=== PATIENT | male | born 1955 | race Caucasian/White ===

== ENCOUNTER 2023-06-26 00:08 | Inpatient (IN) | payer OTHER ==
[~2023-06-26] VITALS: Ht 185.4 cm; Wt 77.4 kg
[2023-06-26] VITALS (12 sets, daily range): BP systolic 104–122; BP diastolic 54–68; TEMP 98.5–100.1; O2SAT 97–100
[2023-06-26] MEDS ORDERED: AMIODARONE HCL IV 150 MG in IV DEXTROSE 5% 100 ML IV ONE (00:45)
[2023-06-26] MEDS ORDERED: IV NORMAL SALINE 1000 ML BAG IV ONE ×2 (00:45→02:15)
[2023-06-26] MEDS ORDERED: AMIODARONE HCL IV 450 MG in IV DEXTROSE 5% 250 ML IV PRN (00:45)
[2023-06-26 00:55] LABS: ABG BASE EXCESS 6.6 mmol/L (-2.0-2.0); ABG HCO3 30.3 mmol/L (22.0-26.0); ABG PCO2 39.5 mmHg (35.0-48.0); ABG PH 7.502 (7.340-7.440); ABG PO2 68.8 mmHg (75.0-100.0); ABG SITE LEFT RADIAL; ABG TOTAL HEMOGLOBIN 9.1 G/dL (14.0-18.0); AaDO2 95.2 mmHg; COHb 0.6 % (0.0-3.9); MetHb 0.2 % (0.0-1.5); O2Hb 93.4 % (94.0-97.0)
[2023-06-26 01:00] LABS: BASOPHILS % (AUTO) 0.3 % (0.0-2.0); EOSINOPHILS % (AUTO) 0.4 % (0.0-7.0); HEMATOCRIT 25.6 % (36.7-47.1); HEMOGLOBIN 8.4 g/dL (12.5-16.3); LYMPHOCYTES # (AUTO) 0.3 K/uL (0.8-4.8); LYMPHOCYTES % (AUTO) 3.8 % (20.5-51.5); MEAN CORPUSCULAR HEMOGLOBIN 32.2 uug (23.8-33.4); MEAN CORPUSCULAR HGB CONC 33 g/dL (32.5-36.3); MEAN CORPUSCULAR VOLUME 98.5 fL (73.0-96.2); MONOCYTES # (AUTO) 0.1 K/uL (0.1-1.30); MONOCYTES % (AUTO) 1.3 % (0.0-11.0); NEUTROPHILS # (AUTO) 8.2 K/uL (1.8-8.9); NEUTROPHILS % (AUTO) 94.2 % (38.5-71.5); PLATELET COUNT (AUTO) 147 K/uL (152-348); RED CELL DISTRIBUTION WIDTH 18.7 % (12.1-16.2); WHITE BLOOD COUNT (AUTO) 8.7 K/uL (3.6-10.2)
[2023-06-26] MEDS ORDERED: AMIODARONE HCL 150 MG/3 ML VIAL IV ONE ×2 (01:00→01:57)
[2023-06-26 01:02] LABS: DIFFERENTIAL COMMENT 1
[2023-06-26 01:15] LABS: CALCIUM 7.4 mg/dL (8.5-10.1); CARBON DIOXIDE 31 mmol/L (21-32); CHLORIDE 102 mmol/L (98-107); CREATININE 1.4 mg/dL (0.6-1.3); GLUCOSE 110 mg/dL (74-106); POTASSIUM 4.1 mmol/L (3.5-5.1); SODIUM SERUM 138 mmol/L (136-145); UREA NITROGEN, BLOOD 29 mg/dL (7-18)
[2023-06-26 01:28] LABS: ALANINE AMINOTRANSFERASE 37 U/L (16-63); ALBUMIN 1.9 g/dL (3.4-5.0); ALKALINE PHOSPHATASE 94 U/L (50-136); ASPARTATE AMINOTRANSFERASE 24 U/L (15-37); BILIRUBIN,DIRECT 0.3 mg/dL (0.0-0.2); BILIRUBIN,TOTAL 0.7 mg/dL (0.2-1.0); NT-PRO BNP 3496 pg/mL (0-125); TOTAL PROTEIN, SERUM 5.3 g/dL (6.4-8.2)
[2023-06-26] MEDS ORDERED: ATOR80TA GT (01:28)
[2023-06-26] MEDS ORDERED: LEVO150T GT (01:28)
[2023-06-26] MEDS ORDERED: AMIO200T7 GT (01:28)
[2023-06-26] MEDS ORDERED: FURO-152 GT (01:28)
[2023-06-26] MEDS ORDERED: METO-357 GT (01:28)
[2023-06-26] MEDS ORDERED: RIVA20TA GT (01:28)
[2023-06-26] MEDS ORDERED: AMLO5TAB4 GT (01:28)
[2023-06-26] MEDS ORDERED: SWABABLE VALVE TRANSFER SET EA MC ONE ×2 (03:17→08:19)
[2023-06-26] MEDS ORDERED: IOHEXOL 350 100 ML INFUS..BTL ONE ×2 (03:17→08:20)
[2023-06-26] MEDS ORDERED: IV NORMAL SALINE 250 ML IV ONE ×2 (03:17→08:19)
[2023-06-26] MEDS ORDERED: LORAZEPAM 2 MG/1 ML VIAL IV PRN (11:45)
[2023-06-26] MEDS ORDERED: ALBUTEROL SULFATE 2.5 MG/3 ML NEBU NEB PRN (11:45)
[2023-06-26] MEDS: DOXYCYCLINE HYCLATE IV 100 MG in IV DEXTROSE 5% 100 ML IV SCH ×2 (11:45→21:18)
[2023-06-26] MEDS: PANTOPRAZOLE SODIUM 40 MG VIAL IV SCH (11:45)
[2023-06-26] MEDS ORDERED: NOREPINEPHRINE BITARTRATE 8 MG in IV NORMAL SALINE 250 ML IV PRN (11:45)
[2023-06-26] MEDS ORDERED: NORMAL SALINE FLUSH 10 ML DISP.SYRIN IV PRN (11:45)
[2023-06-26] MEDS ORDERED: IPRATROPIUM BROMIDE 0.5 MG/2.5 ML NEBU NEB PRN (11:45)
[2023-06-26] MEDS: CEFEPIME HCL 1 G in IV DEXTROSE 5% 50 ML IV SCH (13:44)
[2023-06-26] MEDS ORDERED: CEFEPIME HCL 1 G in IV DEXTROSE 5% 50 ML IV SCH (14:00)
[2023-06-26] MEDS: NORMAL SALINE FLUSH 10 ML DISP.SYRIN IV SCH ×2 (14:02→22:44)
[2023-06-26] MEDS: MORPHINE SULFATE 2 MG/1 ML DISP.SYRIN IV PRN (14:09)
[2023-06-26] MEDS: FUROSEMIDE 40 MG/4 ML VIAL IV SCH (16:00)
[2023-06-26] MEDS: AMIODARONE HCL 200 MG TABLET GT SCH (16:00)
[2023-06-26] MEDS: PROTEIN SUPPLEMENT (PROSTAT) 30 ML LIQUID GT SCH (17:00)
[2023-06-26] MEDS: METOPROLOL SUCCINATE XL 50 MG TAB.SR.24H PO SCH (17:13)
[2023-06-26] MEDS: AMLODIPINE 5 MG TABLET GT SCH (17:14)
[2023-06-26 18:11] LABS: HEMOGLOBIN 7.7 g/dL (12.5-16.3)
[2023-06-26] MEDS: ATORVASTATIN 40 MG TABLET GT SCH (21:18)
[2023-06-27] VITALS (25 sets, daily range): BP systolic 104–121; BP diastolic 47–77; TEMP 97.7–100.1; O2SAT 98–100
[2023-06-27 00:12] LABS: HEMATOCRIT 22.8 % (36.7-47.1)
[2023-06-27 00:13] LABS: HEMOGLOBIN 7.4 g/dL (12.5-16.3)
[2023-06-27] MEDS: CEFEPIME HCL 1 G in IV DEXTROSE 5% 50 ML IV SCH ×2 (01:30→13:30)
[2023-06-27] MEDS: NORMAL SALINE FLUSH 10 ML DISP.SYRIN IV SCH ×3 (05:32→22:30)
[2023-06-27 05:34] LABS: BASOPHILS # (AUTO) 0.3 K/UL (0.0-0.2); EOSINOPHILS % (AUTO) 0.4 % (0.0-7.0); HEMOGLOBIN 7.5 g/dL (12.5-16.3); LYMPHOCYTES # (AUTO) 0.8 K/uL (0.8-4.8); LYMPHOCYTES % (AUTO) 8.9 % (20.5-51.5); MEAN CORPUSCULAR HGB CONC 33 g/dL (32.5-36.3); MEAN CORPUSCULAR VOLUME 97.8 fL (73.0-96.2); MONOCYTES # (AUTO) 0.6 K/uL (0.1-1.30); NEUTROPHILS # (AUTO) 6.9 K/uL (1.8-8.9); NEUTROPHILS % (AUTO) 80.7 % (38.5-71.5); PLATELET COUNT (AUTO) 142 K/uL (152-348); WHITE BLOOD COUNT (AUTO) 8.5 K/uL (3.6-10.2)
[2023-06-27 05:41] LABS: DIFFERENTIAL COMMENT 1; RED BLOOD CELL COUNT(AUTO) 2.35 MIL/uL (4.06-5.63)
[2023-06-27 05:44] LABS: CALCIUM 6.9 mg/dL (8.5-10.1); CREATININE 1.4 mg/dL (0.6-1.3); MAGNESIUM 1.9 mg/dL (1.8-2.4); PHOSPHOROUS 3.1 mg/dL (2.5-4.9); POTASSIUM 3.8 mmol/L (3.5-5.1)
[2023-06-27 06:10] LABS: *BILIRUBIN,URIN NEGATIVE (NEGATIVE); *CLARITY,URINE CLEAR (CLEAR); *COLOR,URINE YELLOW (YELLOW); *KETONES,URINE TRACE (NEGATIVE); *PROTEIN,URINE 2+ (NEGATIVE); *UROBILINOGEN,URINE >=8.0 E.U./dl (NORMAL); LEUKOCYTE ESTERASE ,URINE NEGATIVE (NEGATIVE); NITRITE, URINE NEGATIVE (NEGATIVE); PH,URINE 8.5 (5.0-8.0); UGLUCOSE NEGATIVE (NEGATIVE)
[2023-06-27 06:15] LABS: *BLOOD, URINE TRACE (NEGATIVE)
[2023-06-27 06:18] LABS: *CREATININE,URINE 186.4 mg/dL (30-125); *URINE TOTAL PROTEIN RANDOM 91.3 mg/dL (<150/24HR)
[2023-06-27 06:19] LABS: ABG BASE EXCESS 3.9 mmol/L (-2.0-2.0); ABG HCO3 26.4 mmol/L (22.0-26.0); ABG PCO2 31.7 mmHg (35.0-48.0); ABG PH 7.539 (7.340-7.440); ABG PO2 157.8 mmHg (75.0-100.0); ABG TOTAL HEMOGLOBIN 8.4 G/dL (14.0-18.0); AaDO2 99.2 mmHg; COHb 0.6 % (0.0-3.9); MetHb 0.5 % (0.0-1.5); VT, ABG 500 mL
[2023-06-27] MEDS: LEVOTHYROXINE SODIUM 150 MCG TABLET GT SCH (06:28)
[2023-06-27 06:31] LABS: BACTERIA,URINE FEW /HPF (NONE SEEN); SQUAMOUS EPITHELIAL CELL,UR FEW /HPF (NONE SEEN); WBC,URINE NONE SEEN /HPF (0-3)
[2023-06-27] MEDS: AMIODARONE HCL 200 MG TABLET GT SCH (08:37)
[2023-06-27] MEDS: AMLODIPINE 5 MG TABLET GT SCH (08:39)
[2023-06-27] MEDS: METOPROLOL SUCCINATE XL 50 MG TAB.SR.24H PO SCH (08:41)
[2023-06-27] MEDS: FUROSEMIDE 40 MG/4 ML VIAL IV SCH (08:43)
[2023-06-27] MEDS: PANTOPRAZOLE SODIUM 40 MG VIAL IV SCH (08:43)
[2023-06-27] MEDS: DOXYCYCLINE HYCLATE IV 100 MG in IV DEXTROSE 5% 100 ML IV SCH ×2 (08:49→20:49)
[2023-06-27] MEDS: PROTEIN SUPPLEMENT (PROSTAT) 30 ML LIQUID GT SCH ×2 (09:29→18:26)
[2023-06-27] MEDS: POLYVINYL ALCOHOL OPHT DROPS 15 ML BOTTLE EACHEYE PRN (16:48)
[2023-06-27] MEDS ORDERED: METOPROLOL SUCCINATE XL 50 MG TAB.SR.24H PO SCH (17:00)
[2023-06-27] MEDS: METOPROLOL TARTRATE 50 MG TABLET PO SCH (18:25)
[2023-06-27] MEDS: ATORVASTATIN 40 MG TABLET GT SCH (20:49)
[2023-06-27] MEDS: TEMAZEPAM 7.5 MG CAPSULE PO PRN (22:36)
[2023-06-28] VITALS (24 sets, daily range): BP systolic 106–134; BP diastolic 34–70; TEMP 98.6–99.7; O2SAT 100
[2023-06-28] MEDS: CEFEPIME HCL 1 G in IV DEXTROSE 5% 50 ML IV SCH ×2 (01:45→14:26)
[2023-06-28 04:42] LABS: BASOPHILS % (AUTO) 0.4 % (0.0-2.0); EOSINOPHILS # (AUTO) 0.1 K/uL (0.0-0.7); EOSINOPHILS % (AUTO) 1.3 % (0.0-7.0); HEMATOCRIT 24.3 % (36.7-47.1); HEMOGLOBIN 7.9 g/dL (12.5-16.3); LYMPHOCYTES # (AUTO) 1.1 K/uL (0.8-4.8); LYMPHOCYTES % (AUTO) 13.4 % (20.5-51.5); MEAN CORPUSCULAR HEMOGLOBIN 31.9 uug (23.8-33.4); MEAN CORPUSCULAR HGB CONC 33 g/dL (32.5-36.3); MEAN CORPUSCULAR VOLUME 97.6 fL (73.0-96.2); MONOCYTES # (AUTO) 0.8 K/uL (0.1-1.30); MONOCYTES % (AUTO) 9.5 % (0.0-11.0); NEUTROPHILS # (AUTO) 6.3 K/uL (1.8-8.9); NEUTROPHILS % (AUTO) 75.4 % (38.5-71.5); PLATELET COUNT (AUTO) 131 K/uL (152-348); WHITE BLOOD COUNT (AUTO) 8.3 K/uL (3.6-10.2)
[2023-06-28 05:11] LABS: DIFFERENTIAL COMMENT 1; RED BLOOD CELL COUNT(AUTO) 2.49 MIL/uL (4.06-5.63)
[2023-06-28 05:14] LABS: CALCIUM 7.2 mg/dL (8.5-10.1); CREATININE 1.4 mg/dL (0.6-1.3); POTASSIUM 3.4 mmol/L (3.5-5.1)
[2023-06-28 05:18] LABS: PHOSPHOROUS 2.7 mg/dL (2.5-4.9)
[2023-06-28 05:54] LABS: ABG BASE EXCESS 1.7 mmol/L (-2.0-2.0); ABG HCO3 24.2 mmol/L (22.0-26.0); ABG PCO2 30.6 mmHg (35.0-48.0); ABG PH 7.516 (7.340-7.440); ABG PO2 91.3 mmHg (75.0-100.0); ABG SITE RIGHT RADIAL; AaDO2 97.7 mmHg; COHb 0.5 % (0.0-3.9); MetHb 0.1 % (0.0-1.5); O2Hb 96.3 % (94.0-97.0); VT, ABG 500 mL
[2023-06-28] MEDS: NORMAL SALINE FLUSH 10 ML DISP.SYRIN IV SCH ×3 (06:21→22:30)
[2023-06-28] MEDS: LEVOTHYROXINE SODIUM 150 MCG TABLET GT SCH (06:32)
[2023-06-28] MEDS: PROTEIN SUPPLEMENT (PROSTAT) 30 ML LIQUID GT SCH ×2 (09:00→16:55)
[2023-06-28] MEDS: PANTOPRAZOLE SODIUM 40 MG VIAL IV SCH (09:07)
[2023-06-28] MEDS: FUROSEMIDE 40 MG/4 ML VIAL IV SCH (09:07)
[2023-06-28] MEDS: METOPROLOL TARTRATE 50 MG TABLET PO SCH ×2 (09:08→16:56)
[2023-06-28] MEDS: DOXYCYCLINE HYCLATE IV 100 MG in IV DEXTROSE 5% 100 ML IV SCH ×2 (09:10→20:52)
[2023-06-28] MEDS: AMLODIPINE 5 MG TABLET GT SCH (09:13)
[2023-06-28] MEDS ORDERED: POTASSIUM CHLORIDE 20 MEQ POWDER PACKET GT ONE (11:00)
[2023-06-28] MEDS ORDERED: REMEDY ESSENTIAL ZINC PASTE 113 GM TOP PRN (11:45)
[2023-06-28] MEDS: JEVITY 1.2 1000 ML LIQUID GT PRN (16:36)
[2023-06-28] MEDS: MORPHINE SULFATE 2 MG/1 ML DISP.SYRIN IV PRN ×2 (16:51→17:33)
[2023-06-28] MEDS: ATORVASTATIN 40 MG TABLET GT SCH (20:52)
[2023-06-28] MEDS: TEMAZEPAM 7.5 MG CAPSULE PO PRN (21:09)
[2023-06-29] VITALS (24 sets, daily range): BP systolic 110–132; BP diastolic 43–65; TEMP 98–99.8; O2SAT 99–100
[2023-06-29] MEDS: CEFEPIME HCL 1 G in IV DEXTROSE 5% 50 ML IV SCH ×3 (01:41→18:33)
[2023-06-29 05:23] LABS: BASOPHILS % (AUTO) 0.4 % (0.0-2.0); EOSINOPHILS # (AUTO) 0.1 K/uL (0.0-0.7); EOSINOPHILS % (AUTO) 1.8 % (0.0-7.0); HEMATOCRIT 23.4 % (36.7-47.1); HEMOGLOBIN 7.8 g/dL (12.5-16.3); LYMPHOCYTES # (AUTO) 1.4 K/uL (0.8-4.8); LYMPHOCYTES % (AUTO) 16.9 % (20.5-51.5); MEAN CORPUSCULAR HEMOGLOBIN 32.4 uug (23.8-33.4); MEAN CORPUSCULAR HGB CONC 33 g/dL (32.5-36.3); MEAN CORPUSCULAR VOLUME 97.2 fL (73.0-96.2); MONOCYTES # (AUTO) 0.8 K/uL (0.1-1.30); MONOCYTES % (AUTO) 9.5 % (0.0-11.0); NEUTROPHILS # (AUTO) 5.7 K/uL (1.8-8.9); NEUTROPHILS % (AUTO) 71.4 % (38.5-71.5); PLATELET COUNT (AUTO) 135 K/uL (152-348)
[2023-06-29 05:42] LABS: MAGNESIUM 1.8 mg/dL (1.8-2.4); PHOSPHOROUS 2.3 mg/dL (2.5-4.9)
[2023-06-29 05:43] LABS: CALCIUM 6.9 mg/dL (8.5-10.1); CREATININE 1.2 mg/dL (0.6-1.3); DIFFERENTIAL COMMENT 1; POTASSIUM 3.4 mmol/L (3.5-5.1); RED BLOOD CELL COUNT(AUTO) 2.41 MIL/uL (4.06-5.63)
[2023-06-29 05:47] LABS: ABG BASE EXCESS 4.4 mmol/L (-2.0-2.0); ABG HCO3 26.8 mmol/L (22.0-26.0); ABG PCO2 31.1 mmHg (35.0-48.0); ABG PH 7.554 (7.340-7.440); ABG PO2 114.4 mmHg (75.0-100.0); ABG SITE RIGHT RADIAL; ABG TOTAL HEMOGLOBIN 7.9 G/dL (14.0-18.0); AaDO2 98.7 mmHg; COHb 0.8 % (0.0-3.9); MetHb 0.5 % (0.0-1.5); O2Hb 97.1 % (94.0-97.0); VT, ABG 500 mL
[2023-06-29] MEDS: LEVOTHYROXINE SODIUM 150 MCG TABLET GT SCH (06:31)
[2023-06-29] MEDS: NORMAL SALINE FLUSH 10 ML DISP.SYRIN IV SCH ×3 (06:32→22:00)
[2023-06-29] MEDS ORDERED: POTASSIUM CHLORIDE 20 MEQ POWDER PACKET GT ONE (07:45)
[2023-06-29] MEDS: AMLODIPINE 5 MG TABLET GT SCH (09:26)
[2023-06-29] MEDS: METOPROLOL TARTRATE 50 MG TABLET PO SCH ×2 (09:27→17:01)
[2023-06-29] MEDS: PANTOPRAZOLE SODIUM 40 MG VIAL IV SCH (09:27)
[2023-06-29] MEDS: FUROSEMIDE 40 MG/4 ML VIAL IV SCH (09:27)
[2023-06-29] MEDS: DOXYCYCLINE HYCLATE IV 100 MG in IV DEXTROSE 5% 100 ML IV SCH ×2 (09:31→20:31)
[2023-06-29] MEDS: PROTEIN SUPPLEMENT (PROSTAT) 30 ML LIQUID GT SCH ×2 (09:32→17:01)
[2023-06-29] MEDS: MORPHINE SULFATE 2 MG/1 ML DISP.SYRIN IV PRN ×2 (15:28→22:06)
[2023-06-29] MEDS ORDERED: NEUTRA PHOS PACKET GT ONE (16:30)
[2023-06-29] MEDS: ATORVASTATIN 40 MG TABLET GT SCH (20:30)
[2023-06-29] MEDS: TEMAZEPAM 7.5 MG CAPSULE PO PRN (20:30)
[2023-06-30] VITALS (24 sets, daily range): BP systolic 109–142; BP diastolic 53–96; TEMP 97.7–98.8; O2SAT 100
[2023-06-30] MEDS: CEFEPIME HCL 1 G in IV DEXTROSE 5% 50 ML IV SCH ×3 (03:40→20:12)
[2023-06-30 05:35] LABS: BASOPHILS % (AUTO) 0.6 % (0.0-2.0); EOSINOPHILS # (AUTO) 0.2 K/uL (0.0-0.7); HEMATOCRIT 23.2 % (36.7-47.1); HEMOGLOBIN 7.5 g/dL (12.5-16.3); LYMPHOCYTES # (AUTO) 1.4 K/uL (0.8-4.8); LYMPHOCYTES % (AUTO) 18.8 % (20.5-51.5); MEAN CORPUSCULAR HEMOGLOBIN 31.5 uug (23.8-33.4); MEAN CORPUSCULAR HGB CONC 32 g/dL (32.5-36.3); MONOCYTES # (AUTO) 0.8 K/uL (0.1-1.30); NEUTROPHILS # (AUTO) 5.2 K/uL (1.8-8.9); NEUTROPHILS % (AUTO) 67.6 % (38.5-71.5); PLATELET COUNT (AUTO) 150 K/uL (152-348); RED CELL DISTRIBUTION WIDTH 18.1 % (12.1-16.2); WHITE BLOOD COUNT (AUTO) 7.7 K/uL (3.6-10.2)
[2023-06-30 05:46] LABS: CALCIUM 6.8 mg/dL (8.5-10.1); CREATININE 1.1 mg/dL (0.6-1.3); POTASSIUM 3.7 mmol/L (3.5-5.1)
[2023-06-30 05:51] LABS: DIFFERENTIAL COMMENT 1; MAGNESIUM 1.8 mg/dL (1.8-2.4); RED BLOOD CELL COUNT(AUTO) 2.39 MIL/uL (4.06-5.63)
[2023-06-30 06:12] LABS: ABG BASE EXCESS 2.4 mmol/L (-2.0-2.0); ABG HCO3 25.8 mmol/L (22.0-26.0); ABG PH 7.486 (7.340-7.440); ABG PO2 101.9 mmHg (75.0-100.0); ABG SITE RIGHT RADIAL; ABG TOTAL HEMOGLOBIN 8.4 G/dL (14.0-18.0); AaDO2 98.1 mmHg; COHb 0.6 % (0.0-3.9); MetHb 0.1 % (0.0-1.5); O2Hb 96.9 % (94.0-97.0)
[2023-06-30] MEDS: NORMAL SALINE FLUSH 10 ML DISP.SYRIN IV SCH ×3 (06:18→21:21)
[2023-06-30] MEDS: LEVOTHYROXINE SODIUM 150 MCG TABLET GT SCH (07:00)
[2023-06-30] MEDS: MORPHINE SULFATE 2 MG/1 ML DISP.SYRIN IV PRN ×2 (08:07→20:15)
[2023-06-30 09:16] LABS: ALBUMIN 1.7 g/dL (3.4-5.0); BILIRUBIN,DIRECT 0.2 mg/dL (0.0-0.2); BILIRUBIN,TOTAL 0.4 mg/dL (0.2-1.0); TOTAL PROTEIN, SERUM 5.2 g/dL (6.4-8.2)
[2023-06-30] MEDS: METOPROLOL TARTRATE 50 MG TABLET PO SCH ×2 (09:39→15:54)
[2023-06-30] MEDS: DOXYCYCLINE HYCLATE IV 100 MG in IV DEXTROSE 5% 100 ML IV SCH ×2 (09:40→20:10)
[2023-06-30] MEDS: PANTOPRAZOLE SODIUM 40 MG VIAL IV SCH (09:40)
[2023-06-30] MEDS: AMLODIPINE 5 MG TABLET GT SCH (09:41)
[2023-06-30] MEDS: PROTEIN SUPPLEMENT (PROSTAT) 30 ML LIQUID GT SCH ×2 (09:45→15:54)
[2023-06-30] MEDS ORDERED: LORAZEPAM 2 MG/1 ML VIAL IV PRN (11:45)
[2023-06-30] MEDS: POLYVINYL ALCOHOL OPHT DROPS 15 ML BOTTLE EACHEYE PRN (14:11)
[2023-06-30] MEDS: LORAZEPAM 1 MG TABLET GT PRN (15:52)
[2023-06-30] MEDS: ATORVASTATIN 40 MG TABLET GT SCH (20:18)
[2023-07-01] VITALS (20 sets, daily range): BP systolic 108–143; BP diastolic 59–78; TEMP 98.1–98.9; O2SAT 96–100
[2023-07-01] MEDS: CEFEPIME HCL 1 G in IV DEXTROSE 5% 50 ML IV SCH ×3 (02:27→18:42)
[2023-07-01] MEDS: JEVITY 1.2 1000 ML LIQUID GT PRN (04:49)
[2023-07-01 05:51] LABS: CALCIUM 7.1 mg/dL (8.5-10.1); POTASSIUM 3.7 mmol/L (3.5-5.1)
[2023-07-01 05:54] LABS: BASOPHILS % (AUTO) 0.3 % (0.0-2.0); DIFFERENTIAL COMMENT 0; EOSINOPHILS # (AUTO) 0.1 K/uL (0.0-0.7); EOSINOPHILS % (AUTO) 1.1 % (0.0-7.0); HEMOGLOBIN 8.2 g/dL (12.5-16.3); LYMPHOCYTES # (AUTO) 1.5 K/uL (0.8-4.8); LYMPHOCYTES % (AUTO) 14.2 % (20.5-51.5); MEAN CORPUSCULAR HEMOGLOBIN 31.9 uug (23.8-33.4); MEAN CORPUSCULAR HGB CONC 33 g/dL (32.5-36.3); MEAN CORPUSCULAR VOLUME 97.6 fL (73.0-96.2); MONOCYTES # (AUTO) 0.9 K/uL (0.1-1.30); MONOCYTES % (AUTO) 8.5 % (0.0-11.0); NEUTROPHILS # (AUTO) 7.9 K/uL (1.8-8.9); NEUTROPHILS % (AUTO) 75.9 % (38.5-71.5); PLATELET COUNT (AUTO) 162 K/uL (152-348); RED BLOOD CELL COUNT(AUTO) 2.56 MIL/uL (4.06-5.63); RED CELL DISTRIBUTION WIDTH 18.2 % (12.1-16.2); WHITE BLOOD COUNT (AUTO) 10.4 K/uL (3.6-10.2)
[2023-07-01 05:56] LABS: MAGNESIUM 1.7 mg/dL (1.8-2.4); PHOSPHOROUS 2.8 mg/dL (2.5-4.9)
[2023-07-01] MEDS: NORMAL SALINE FLUSH 10 ML DISP.SYRIN IV SCH ×2 (06:01→14:08)
[2023-07-01] MEDS: LEVOTHYROXINE SODIUM 150 MCG TABLET GT SCH (06:01)
[2023-07-01 06:37] LABS: ABG BASE EXCESS 3.6 mmol/L (-2.0-2.0); ABG HCO3 25.5 mmol/L (22.0-26.0); ABG PCO2 28.9 mmHg (35.0-48.0); ABG PH 7.564 (7.340-7.440); ABG PO2 94.6 mmHg (75.0-100.0); ABG TOTAL HEMOGLOBIN 8.9 G/dL (14.0-18.0); AaDO2 98.1 mmHg; COHb 0.8 % (0.0-3.9); MetHb 0.3 % (0.0-1.5); O2Hb 96.3 % (94.0-97.0)
[2023-07-01] MEDS: MORPHINE SULFATE 2 MG/1 ML DISP.SYRIN IV PRN (08:26)
[2023-07-01] MEDS: PANTOPRAZOLE ORAL SUSPENSION 40 MG SUSPDR.PKT GT SCH (08:26)
[2023-07-01] MEDS ORDERED: MAGNESIUM SULFATE/D5W 100 ML IV SCH (08:45)
[2023-07-01] MEDS: PROTEIN SUPPLEMENT (PROSTAT) 30 ML LIQUID GT SCH ×2 (09:05→11:48)
[2023-07-01] MEDS: DOXYCYCLINE HYCLATE IV 100 MG in IV DEXTROSE 5% 100 ML IV SCH ×2 (09:06→21:18)
[2023-07-01] MEDS: METOPROLOL TARTRATE 50 MG TABLET PO SCH ×2 (09:12→17:14)
[2023-07-01 09:45] LABS: THYROID STIMULATING HORMONE 21.446 mIU/mL (0.358-3.740)
[2023-07-01] MEDS ORDERED: FUROSEMIDE 40 MG/4 ML VIAL IV ONE (09:52)
[2023-07-01] MEDS: LORAZEPAM 1 MG TABLET GT PRN (17:14)
[2023-07-01] MEDS: ACETAMINOPHEN 650 MG/20.3 ML LIQUID UDC GT PRN (17:15)
[2023-07-01] MEDS: ATORVASTATIN 40 MG TABLET GT SCH (21:18)
[2023-07-02] VITALS (9 sets, daily range): BP systolic 103–130; BP diastolic 60–67; TEMP 97.8–98.4; O2SAT 92–100
[2023-07-02] MEDS: CEFEPIME HCL 1 G in IV DEXTROSE 5% 50 ML IV SCH ×3 (02:47→18:09)
[2023-07-02] MEDS: JEVITY 1.2 1000 ML LIQUID GT PRN ×2 (02:47→18:10)
[2023-07-02 05:44] LABS: ABG BASE EXCESS 5.4 mmol/L (-2.0-2.0); ABG HCO3 29.2 mmol/L (22.0-26.0); ABG PCO2 39.4 mmHg (35.0-48.0); ABG PH 7.488 (7.340-7.440); ABG PO2 87.3 mmHg (75.0-100.0); ABG SITE LEFT RADIAL; ABG TOTAL HEMOGLOBIN 9.1 G/dL (14.0-18.0); AaDO2 97.2 mmHg; COHb 0.6 % (0.0-3.9); MetHb 0.4 % (0.0-1.5); O2Hb 95.8 % (94.0-97.0)
[2023-07-02] MEDS: LEVOTHYROXINE SODIUM 175 MCG TABLET GT SCH (06:03)
[2023-07-02] MEDS: PANTOPRAZOLE ORAL SUSPENSION 40 MG SUSPDR.PKT GT SCH (06:03)
[2023-07-02] MEDS: MORPHINE SULFATE 2 MG/1 ML DISP.SYRIN IV PRN (06:19)
[2023-07-02 06:35] LABS: BASOPHILS # (AUTO) 0.1 K/UL (0.0-0.2); BASOPHILS % (AUTO) 0.6 % (0.0-2.0); EOSINOPHILS # (AUTO) 0.2 K/uL (0.0-0.7); EOSINOPHILS % (AUTO) 1.5 % (0.0-7.0); HEMATOCRIT 26.7 % (36.7-47.1); HEMOGLOBIN 8.7 g/dL (12.5-16.3); LYMPHOCYTES # (AUTO) 1.4 K/uL (0.8-4.8); LYMPHOCYTES % (AUTO) 13.5 % (20.5-51.5); MEAN CORPUSCULAR HEMOGLOBIN 31.8 uug (23.8-33.4); MEAN CORPUSCULAR HGB CONC 33 g/dL (32.5-36.3); MEAN CORPUSCULAR VOLUME 97.4 fL (73.0-96.2); MONOCYTES # (AUTO) 0.8 K/uL (0.1-1.30); MONOCYTES % (AUTO) 7.8 % (0.0-11.0); NEUTROPHILS # (AUTO) 7.7 K/uL (1.8-8.9); NEUTROPHILS % (AUTO) 76.6 % (38.5-71.5); PLATELET COUNT (AUTO) 184 K/uL (152-348); RED BLOOD CELL COUNT(AUTO) 2.74 MIL/uL (4.06-5.63); RED CELL DISTRIBUTION WIDTH 18.1 % (12.1-16.2)
[2023-07-02 06:37] LABS: DIFFERENTIAL COMMENT 1
[2023-07-02 06:48] LABS: CALCIUM 7.8 mg/dL (8.5-10.1); MAGNESIUM 2.2 mg/dL (1.8-2.4); PHOSPHOROUS 2.8 mg/dL (2.5-4.9); POTASSIUM 3.7 mmol/L (3.5-5.1)
[2023-07-02] MEDS: DOXYCYCLINE HYCLATE IV 100 MG in IV DEXTROSE 5% 100 ML IV SCH ×2 (08:39→20:16)
[2023-07-02] MEDS: METOPROLOL TARTRATE 50 MG TABLET PO SCH ×2 (08:39→16:16)
[2023-07-02] MEDS: PROTEIN SUPPLEMENT (PROSTAT) 30 ML LIQUID GT SCH (08:39)
[2023-07-02] MEDS: ACETAMINOPHEN 650 MG/20.3 ML LIQUID UDC GT PRN (20:15)
[2023-07-02] MEDS: ATORVASTATIN 40 MG TABLET GT SCH (20:16)
[2023-07-02] MEDS: TEMAZEPAM 7.5 MG CAPSULE PO PRN (20:17)
[2023-07-03] VITALS (9 sets, daily range): BP systolic 90–124; BP diastolic 40–67; TEMP 97.6–100.5; O2SAT 93–100
[2023-07-03] MEDS: MORPHINE SULFATE 2 MG/1 ML DISP.SYRIN IV PRN (02:04)
[2023-07-03] MEDS ORDERED: AMIODARONE HCL IV 150 MG in IV DEXTROSE 5% 100 ML IV ONE ×2 (02:45→03:00)
[2023-07-03] MEDS ORDERED: AMIODARONE HCL IV 450 MG in IV DEXTROSE 5% 250 ML IV PRN ×2 (02:45→03:00)
[2023-07-03] MEDS ORDERED: AMIODARONE HCL 150 MG/3 ML VIAL IV ONE ×2 (03:13→03:14)
[2023-07-03] MEDS: LORAZEPAM 1 MG TABLET GT PRN (03:20)
[2023-07-03] MEDS: LEVOTHYROXINE SODIUM 175 MCG TABLET GT SCH (05:38)
[2023-07-03] MEDS: PANTOPRAZOLE ORAL SUSPENSION 40 MG SUSPDR.PKT GT SCH (05:38)
[2023-07-03 07:09] LABS: BASOPHILS % (AUTO) 0.2 % (0.0-2.0); EOSINOPHILS % (AUTO) 0.1 % (0.0-7.0); HEMATOCRIT 29.1 % (36.7-47.1); HEMOGLOBIN 9.4 g/dL (12.5-16.3); LYMPHOCYTES # (AUTO) 0.3 K/uL (0.8-4.8); LYMPHOCYTES % (AUTO) 1.7 % (20.5-51.5); MEAN CORPUSCULAR HEMOGLOBIN 31.3 uug (23.8-33.4); MEAN CORPUSCULAR HGB CONC 32 g/dL (32.5-36.3); MEAN CORPUSCULAR VOLUME 97.2 fL (73.0-96.2); MONOCYTES # (AUTO) 0.2 K/uL (0.1-1.30); MONOCYTES % (AUTO) 0.9 % (0.0-11.0); NEUTROPHILS # (AUTO) 19.3 K/uL (1.8-8.9); NEUTROPHILS % (AUTO) 97.1 % (38.5-71.5); PLATELET COUNT (AUTO) 148 K/uL (152-348); RED CELL DISTRIBUTION WIDTH 18.4 % (12.1-16.2); WHITE BLOOD COUNT (AUTO) 19.9 K/uL (3.6-10.2)
[2023-07-03 07:17] LABS: DIFFERENTIAL COMMENT 1
[2023-07-03 07:41] LABS: CALCIUM 8.1 mg/dL (8.5-10.1); CREATININE 1.4 mg/dL (0.6-1.3); PHOSPHOROUS 3.5 mg/dL (2.5-4.9); POTASSIUM 3.9 mmol/L (3.5-5.1)
[2023-07-03] MEDS: METOPROLOL TARTRATE 50 MG TABLET GT SCH ×2 (09:00→20:37)
[2023-07-03] MEDS ORDERED: IV NORMAL SALINE 500 ML IV ONE (09:30)
[2023-07-03] MEDS: PROTEIN SUPPLEMENT (PROSTAT) 30 ML LIQUID GT SCH (09:54)
[2023-07-03] MEDS: ACETAMINOPHEN 650 MG/20.3 ML LIQUID UDC GT PRN (11:06)
[2023-07-03 12:49] LABS: *BLOOD, URINE 3+ (NEGATIVE); *CLARITY,URINE CLOUDY (CLEAR); *COLOR,URINE Brown (YELLOW); *KETONES,URINE 1+ (NEGATIVE); LEUKOCYTE ESTERASE ,URINE NEGATIVE (NEGATIVE); NITRITE, URINE NEGATIVE (NEGATIVE); PH,URINE 5.5 (5.0-8.0); UGLUCOSE NEGATIVE (NEGATIVE)
[2023-07-03 13:26] LABS: *BILIRUBIN,URIN 2+ (NEGATIVE); *PROTEIN,URINE 3+ (NEGATIVE)
[2023-07-03 13:27] LABS: BACTERIA,URINE FEW /HPF (NONE SEEN); RBC,URINE 80-100 /HPF (0-3); SQUAMOUS EPITHELIAL CELL,UR FEW /HPF (NONE SEEN)
[2023-07-03] MEDS: MEROPENEM 0.5 G in IV NORMAL SALINE 50 ML IV SCH ×2 (14:08→21:02)
[2023-07-03] MEDS: ATORVASTATIN 40 MG TABLET GT SCH (20:37)
[2023-07-03] MEDS: JEVITY 1.2 1000 ML LIQUID GT PRN (23:47)
[2023-07-04] VITALS (9 sets, daily range): BP systolic 83–108; BP diastolic 44–63; TEMP 97.6–98.6; O2SAT 94–100
[2023-07-04] MEDS ORDERED: MIDODRINE HCL 5 MG TABLET GT ONE (01:15)
[2023-07-04] MEDS ORDERED: IV NORMAL SALINE 500 ML IV ONE (01:15)
[2023-07-04] MEDS: PANTOPRAZOLE ORAL SUSPENSION 40 MG SUSPDR.PKT GT SCH (05:22)
[2023-07-04] MEDS: MEROPENEM 0.5 G in IV NORMAL SALINE 50 ML IV SCH ×3 (05:22→21:04)
[2023-07-04] MEDS: LEVOTHYROXINE SODIUM 175 MCG TABLET GT SCH (06:13)
[2023-07-04 06:41] LABS: BASOPHILS % (AUTO) 0.2 % (0.0-2.0); EOSINOPHILS % (AUTO) 0.1 % (0.0-7.0); HEMATOCRIT 23.2 % (36.7-47.1); LYMPHOCYTES # (AUTO) 0.6 K/uL (0.8-4.8); MEAN CORPUSCULAR HGB CONC 32 g/dL (32.5-36.3); MEAN CORPUSCULAR VOLUME 96.6 fL (73.0-96.2); MONOCYTES # (AUTO) 0.2 K/uL (0.1-1.30); NEUTROPHILS # (AUTO) 19.8 K/uL (1.8-8.9); NEUTROPHILS % (AUTO) 95.7 % (38.5-71.5); PLATELET COUNT (AUTO) 131 K/uL (152-348); RED CELL DISTRIBUTION WIDTH 18.1 % (12.1-16.2); WHITE BLOOD COUNT (AUTO) 20.7 K/uL (3.6-10.2)
[2023-07-04 07:00] LABS: DIFFERENTIAL COMMENT 1; HEMOGLOBIN 7.4 g/dL (12.5-16.3)
[2023-07-04 07:33] LABS: CALCIUM 7.6 mg/dL (8.5-10.1); CREATININE 1.3 mg/dL (0.6-1.3); PHOSPHOROUS 3.4 mg/dL (2.5-4.9); POTASSIUM 4.2 mmol/L (3.5-5.1)
[2023-07-04 07:34] LABS: C-REACTIVE PROTEIN 16.13 mg/dL (0.00-0.30)
[2023-07-04] MEDS: PROTEIN SUPPLEMENT (PROSTAT) 30 ML LIQUID GT SCH (08:22)
[2023-07-04] MEDS: METOPROLOL TARTRATE 50 MG TABLET GT SCH ×2 (08:51→21:00)
[2023-07-04 09:02] LABS: ABG BASE EXCESS 2.4 mmol/L (-2.0-2.0); ABG HCO3 25.1 mmol/L (22.0-26.0); ABG PCO2 31.4 mmHg (35.0-48.0); ABG PH 7.521 (7.340-7.440); ABG PO2 111.8 mmHg (75.0-100.0); ABG SITE RIGHT RADIAL; ABG TOTAL HEMOGLOBIN 8.6 G/dL (14.0-18.0); AaDO2 98.5 mmHg; COHb 0.3 % (0.0-3.9); MetHb 0.3 % (0.0-1.5); O2Hb 97.5 % (94.0-97.0); VT, ABG 550 mL
[2023-07-04] MEDS ORDERED: IV NS 1000 ML 1,000 ML IV ONE (13:15)
[2023-07-04] MEDS ORDERED: IV NORMAL SALINE 250 ML IV ONE (13:30)
[2023-07-04] MEDS: MIDODRINE HCL 5 MG TABLET PO SCH ×2 (15:16→22:07)
[2023-07-04] MEDS: MORPHINE SULFATE 2 MG/1 ML DISP.SYRIN IV PRN (16:15)
[2023-07-04] MEDS: JEVITY 1.2 1000 ML LIQUID GT PRN (17:00)
[2023-07-04 19:03] LABS: FREE T4 (FREE THYROXINE) 0.89 ng/dL (0.76-1.46)
[2023-07-04] MEDS: ATORVASTATIN 40 MG TABLET GT SCH (21:04)
[2023-07-05] MEDS: LEVOTHYROXINE SODIUM 175 MCG TABLET GT SCH (05:16)
[2023-07-05] MEDS: PANTOPRAZOLE ORAL SUSPENSION 40 MG SUSPDR.PKT GT SCH ×2 (05:17→22:14)
[2023-07-05] MEDS: MEROPENEM 0.5 G in IV NORMAL SALINE 50 ML IV SCH ×3 (05:17→21:42)
[2023-07-05] MEDS: MIDODRINE HCL 5 MG TABLET PO SCH ×3 (05:17→22:13)
[2023-07-05 05:20] VITALS: BP 102/60; TEMP 98; O2SAT 100
[2023-07-05 08:00] VITALS: BP 101/63; TEMP 98.2; O2SAT 98
[2023-07-05 08:09] LABS: BASOPHILS # (AUTO) 0.1 K/UL (0.0-0.2); BASOPHILS % (AUTO) 0.7 % (0.0-2.0); EOSINOPHILS # (AUTO) 0.1 K/uL (0.0-0.7); EOSINOPHILS % (AUTO) 0.5 % (0.0-7.0); HEMATOCRIT 23.7 % (36.7-47.1); LYMPHOCYTES # (AUTO) 1.5 K/uL (0.8-4.8); LYMPHOCYTES % (AUTO) 8.4 % (20.5-51.5); MEAN CORPUSCULAR HEMOGLOBIN 31.1 uug (23.8-33.4); MEAN CORPUSCULAR HGB CONC 31 g/dL (32.5-36.3); MEAN CORPUSCULAR VOLUME 101.3 fL (73.0-96.2); MONOCYTES # (AUTO) 0.9 K/uL (0.1-1.30); MONOCYTES % (AUTO) 4.8 % (0.0-11.0); NEUTROPHILS # (AUTO) 15.4 K/uL (1.8-8.9); NEUTROPHILS % (AUTO) 85.6 % (38.5-71.5); PLATELET COUNT (AUTO) 111 K/uL (152-348); RED CELL DISTRIBUTION WIDTH 18.5 % (12.1-16.2)
[2023-07-05 08:28] LABS: DIFFERENTIAL COMMENT 1; HEMOGLOBIN 7.3 g/dL (12.5-16.3); RED BLOOD CELL COUNT(AUTO) 2.34 MIL/uL (4.06-5.63)
[2023-07-05 08:39] LABS: BILIRUBIN,TOTAL 0.5 mg/dL (0.2-1.0); CALCIUM 7.8 mg/dL (8.5-10.1); CREATININE 1.1 mg/dL (0.6-1.3); MAGNESIUM 2.6 mg/dL (1.8-2.4); PHOSPHOROUS 3.4 mg/dL (2.5-4.9); POTASSIUM 4.9 mmol/L (3.5-5.1); TOTAL PROTEIN, SERUM 5.1 g/dL (6.4-8.2)
[2023-07-05] MEDS: METOPROLOL TARTRATE 50 MG TABLET GT SCH ×2 (08:54→22:15)
[2023-07-05] MEDS: PROTEIN SUPPLEMENT (PROSTAT) 30 ML LIQUID GT SCH (08:55)
[2023-07-05] MEDS: JEVITY 1.2 1000 ML LIQUID GT PRN (08:57)
[2023-07-05 09:08] LABS: ALBUMIN 1.4 g/dL (3.4-5.0)
[2023-07-05 11:20] VITALS: BP 117/68; TEMP 98.4; O2SAT 100
[2023-07-05 15:36] VITALS: BP 136/60; TEMP 97.6; O2SAT 94
[2023-07-05 20:35] VITALS: BP 139/55; TEMP 98.4; O2SAT 99
[2023-07-05] MEDS: ACETAMINOPHEN 650 MG/20.3 ML LIQUID UDC GT PRN (22:09)
[2023-07-05] MEDS: ATORVASTATIN 40 MG TABLET GT SCH (22:10)
[2023-07-05] MEDS: TEMAZEPAM 7.5 MG CAPSULE PO PRN (22:16)
[2023-07-06 04:00] VITALS: BP 144/72; TEMP 98.4; O2SAT 98
[2023-07-06] MEDS: MEROPENEM 0.5 G in IV NORMAL SALINE 50 ML IV SCH ×3 (05:08→22:19)
[2023-07-06] MEDS: MIDODRINE HCL 5 MG TABLET PO SCH (05:44)
[2023-07-06] MEDS: LEVOTHYROXINE SODIUM 175 MCG TABLET GT SCH (05:44)
[2023-07-06 08:00] VITALS: BP 132/59; TEMP 98.8; O2SAT 99
[2023-07-06] MEDS: METOPROLOL TARTRATE 50 MG TABLET GT SCH ×2 (09:19→22:20)
[2023-07-06] MEDS: PROTEIN SUPPLEMENT (PROSTAT) 30 ML LIQUID GT SCH (09:20)
[2023-07-06] MEDS: PANTOPRAZOLE ORAL SUSPENSION 40 MG SUSPDR.PKT GT SCH ×2 (09:20→21:09)
[2023-07-06] MEDS: JEVITY 1.2 1000 ML LIQUID GT PRN (09:30)
[2023-07-06 12:00] VITALS: BP 138/61; TEMP 98.3; O2SAT 100
[2023-07-06] MEDS: MIDODRINE HCL 2.5 MG TABLET PO SCH ×2 (13:56→22:00)
[2023-07-06 16:00] VITALS: BP 102/63; TEMP 98.3; O2SAT 99
[2023-07-06 20:25] VITALS: BP 110/60; TEMP 98.2; O2SAT 99
[2023-07-06] MEDS: ATORVASTATIN 40 MG TABLET GT SCH (21:09)
[2023-07-06] MEDS: TEMAZEPAM 7.5 MG CAPSULE PO PRN (23:15)
[2023-07-07 04:22] VITALS: BP 116/72; TEMP 98.5; O2SAT 98
[2023-07-07 04:59] LABS: *OCCULT BLOOD STOOL NEGATIVE (NEGATIVE)
[2023-07-07] MEDS: MEROPENEM 0.5 G in IV NORMAL SALINE 50 ML IV SCH ×3 (05:01→22:54)
[2023-07-07] MEDS: MIDODRINE HCL 2.5 MG TABLET PO SCH ×3 (06:00→22:00)
[2023-07-07] MEDS: LEVOTHYROXINE SODIUM 175 MCG TABLET GT SCH (06:01)
[2023-07-07 07:02] LABS: BASOPHILS # (AUTO) 0.1 K/UL (0.0-0.2); BASOPHILS % (AUTO) 0.7 % (0.0-2.0); EOSINOPHILS # (AUTO) 0.1 K/uL (0.0-0.7); EOSINOPHILS % (AUTO) 0.7 % (0.0-7.0); HEMATOCRIT 25.8 % (36.7-47.1); HEMOGLOBIN 8.2 g/dL (12.5-16.3); LYMPHOCYTES # (AUTO) 1.4 K/uL (0.8-4.8); LYMPHOCYTES % (AUTO) 12.3 % (20.5-51.5); MEAN CORPUSCULAR HGB CONC 32 g/dL (32.5-36.3); MEAN CORPUSCULAR VOLUME 96.9 fL (73.0-96.2); MONOCYTES # (AUTO) 0.4 K/uL (0.1-1.30); MONOCYTES % (AUTO) 3.7 % (0.0-11.0); NEUTROPHILS # (AUTO) 9.4 K/uL (1.8-8.9); NEUTROPHILS % (AUTO) 82.6 % (38.5-71.5); PLATELET COUNT (AUTO) 147 K/uL (152-348); RED BLOOD CELL COUNT(AUTO) 2.66 MIL/uL (4.06-5.63); RED CELL DISTRIBUTION WIDTH 18.2 % (12.1-16.2); WHITE BLOOD COUNT (AUTO) 11.4 K/uL (3.6-10.2)
[2023-07-07 07:26] LABS: ALBUMIN 1.6 g/dL (3.4-5.0); BILIRUBIN,TOTAL 0.5 mg/dL (0.2-1.0); CALCIUM 8.2 mg/dL (8.5-10.1); CREATININE 1.1 mg/dL (0.6-1.3); MAGNESIUM 2.4 mg/dL (1.8-2.4); PHOSPHOROUS 3.3 mg/dL (2.5-4.9); POTASSIUM 4.5 mmol/L (3.5-5.1); TOTAL PROTEIN, SERUM 5.1 g/dL (6.4-8.2)
[2023-07-07 07:27] LABS: DIFFERENTIAL COMMENT 1
[2023-07-07 07:34] LABS: C-REACTIVE PROTEIN 6.04 mg/dL (0.00-0.30)
[2023-07-07 07:55] VITALS: BP 133/66; TEMP 98; O2SAT 99
[2023-07-07] MEDS: JEVITY 1.2 1000 ML LIQUID GT PRN (09:32)
[2023-07-07] MEDS: METOPROLOL TARTRATE 50 MG TABLET GT SCH ×2 (09:33→21:01)
[2023-07-07] MEDS: PANTOPRAZOLE ORAL SUSPENSION 40 MG SUSPDR.PKT GT SCH ×2 (09:33→21:01)
[2023-07-07] MEDS: PROTEIN SUPPLEMENT (PROSTAT) 30 ML LIQUID GT SCH (09:33)
[2023-07-07 13:00] VITALS: BP 97/52; TEMP 99; O2SAT 99
[2023-07-07 16:03] VITALS: BP 105/61; TEMP 98.2; O2SAT 96
[2023-07-07 20:00] VITALS: BP 107/69; TEMP 99.6; O2SAT 100
[2023-07-07] MEDS: ATORVASTATIN 40 MG TABLET GT SCH (20:58)
[2023-07-07] MEDS ORDERED: VANCOMYCIN IV 1,000 MG in IV DEXTROSE 5% 250 ML IV SCH (21:00)
[2023-07-08] VITALS (7 sets, daily range): BP systolic 96–136; BP diastolic 49–67; TEMP 97.6–99.1; O2SAT 96–100
[2023-07-08] MEDS: JEVITY 1.2 1000 ML LIQUID GT PRN (05:48)
[2023-07-08] MEDS: MEROPENEM 0.5 G in IV NORMAL SALINE 50 ML IV SCH ×3 (05:48→21:33)
[2023-07-08] MEDS: MIDODRINE HCL 2.5 MG TABLET PO SCH (06:00)
[2023-07-08 06:49] LABS: BASOPHILS # (AUTO) 0.1 K/UL (0.0-0.2); BASOPHILS % (AUTO) 0.6 % (0.0-2.0); EOSINOPHILS # (AUTO) 0.2 K/uL (0.0-0.7); EOSINOPHILS % (AUTO) 1.6 % (0.0-7.0); HEMATOCRIT 25.3 % (36.7-47.1); HEMOGLOBIN 8.2 g/dL (12.5-16.3); LYMPHOCYTES # (AUTO) 1.6 K/uL (0.8-4.8); LYMPHOCYTES % (AUTO) 16.8 % (20.5-51.5); MEAN CORPUSCULAR HEMOGLOBIN 31.5 uug (23.8-33.4); MEAN CORPUSCULAR HGB CONC 32 g/dL (32.5-36.3); MEAN CORPUSCULAR VOLUME 97.4 fL (73.0-96.2); MONOCYTES # (AUTO) 0.8 K/uL (0.1-1.30); MONOCYTES % (AUTO) 7.9 % (0.0-11.0); NEUTROPHILS # (AUTO) 7.1 K/uL (1.8-8.9); NEUTROPHILS % (AUTO) 73.1 % (38.5-71.5); PLATELET COUNT (AUTO) 145 K/uL (152-348); RED BLOOD CELL COUNT(AUTO) 2.59 MIL/uL (4.06-5.63); RED CELL DISTRIBUTION WIDTH 18.4 % (12.1-16.2); WHITE BLOOD COUNT (AUTO) 9.7 K/uL (3.6-10.2)
[2023-07-08] MEDS: LEVOTHYROXINE SODIUM 175 MCG TABLET GT SCH (07:02)
[2023-07-08 07:34] LABS: CALCIUM 7.5 mg/dL (8.5-10.1); CREATININE 0.9 mg/dL (0.6-1.3); MAGNESIUM 2.4 mg/dL (1.8-2.4); PHOSPHOROUS 3.5 mg/dL (2.5-4.9); POTASSIUM 4.6 mmol/L (3.5-5.1)
[2023-07-08 07:56] LABS: DIFFERENTIAL COMMENT 1
[2023-07-08] MEDS: METOPROLOL TARTRATE 50 MG TABLET GT SCH ×2 (08:39→20:47)
[2023-07-08] MEDS: PANTOPRAZOLE ORAL SUSPENSION 40 MG SUSPDR.PKT GT SCH ×2 (08:44→20:47)
[2023-07-08] MEDS: PROTEIN SUPPLEMENT (PROSTAT) 30 ML LIQUID GT SCH (08:45)
[2023-07-08] MEDS: FUROSEMIDE 20 MG/2 ML VIAL IV SCH ×2 (09:15→20:48)
[2023-07-08] MEDS: VANCOMYCIN IV 1,250 MG in IV DEXTROSE 5% 250 ML IV SCH ×2 (10:17→22:22)
[2023-07-08] MEDS ORDERED: VANCOMYCIN IV 1,250 MG in IV DEXTROSE 5% 250 ML IV SCH (12:00)
[2023-07-08] MEDS: ACETAMINOPHEN 650 MG/20.3 ML LIQUID UDC GT PRN (15:00)
[2023-07-08] MEDS: ATORVASTATIN 40 MG TABLET GT SCH (20:46)
[2023-07-08] MEDS: TEMAZEPAM 7.5 MG CAPSULE PO PRN (23:22)
[2023-07-09] VITALS (8 sets, daily range): BP systolic 94–126; BP diastolic 54–68; TEMP 98–98.6; O2SAT 96–100
[2023-07-09] MEDS: MEROPENEM 0.5 G in IV NORMAL SALINE 50 ML IV SCH ×2 (06:00→13:55)
[2023-07-09 06:51] LABS: BASOPHILS # (AUTO) 0.1 K/UL (0.0-0.2); BASOPHILS % (AUTO) 0.8 % (0.0-2.0); EOSINOPHILS # (AUTO) 0.2 K/uL (0.0-0.7); EOSINOPHILS % (AUTO) 1.8 % (0.0-7.0); HEMATOCRIT 25.8 % (36.7-47.1); HEMOGLOBIN 8.2 g/dL (12.5-16.3); LYMPHOCYTES # (AUTO) 1.6 K/uL (0.8-4.8); LYMPHOCYTES % (AUTO) 13.5 % (20.5-51.5); MEAN CORPUSCULAR HEMOGLOBIN 31.1 uug (23.8-33.4); MEAN CORPUSCULAR HGB CONC 32 g/dL (32.5-36.3); MONOCYTES # (AUTO) 0.8 K/uL (0.1-1.30); MONOCYTES % (AUTO) 6.5 % (0.0-11.0); NEUTROPHILS # (AUTO) 8.9 K/uL (1.8-8.9); NEUTROPHILS % (AUTO) 77.4 % (38.5-71.5); PLATELET COUNT (AUTO) 130 K/uL (152-348); RED BLOOD CELL COUNT(AUTO) 2.64 MIL/uL (4.06-5.63); RED CELL DISTRIBUTION WIDTH 18.8 % (12.1-16.2); WHITE BLOOD COUNT (AUTO) 11.5 K/uL (3.6-10.2)
[2023-07-09 07:10] LABS: CALCIUM 7.6 mg/dL (8.5-10.1); CREATININE 0.9 mg/dL (0.6-1.3); POTASSIUM 4.6 mmol/L (3.5-5.1)
[2023-07-09 07:12] LABS: DIFFERENTIAL COMMENT 1
[2023-07-09] MEDS: JEVITY 1.2 1000 ML LIQUID GT PRN (08:25)
[2023-07-09] MEDS ORDERED: FUROSEMIDE 20 MG/2 ML VIAL IV SCH (09:00)
[2023-07-09] MEDS: PANTOPRAZOLE ORAL SUSPENSION 40 MG SUSPDR.PKT GT SCH ×2 (09:21→20:12)
[2023-07-09] MEDS: PROTEIN SUPPLEMENT (PROSTAT) 30 ML LIQUID GT SCH (09:21)
[2023-07-09] MEDS: METOPROLOL TARTRATE 50 MG TABLET GT SCH ×2 (09:21→20:11)
[2023-07-09] MEDS ORDERED: TEMA7.5C PO (11:31)
[2023-07-09] MEDS ORDERED: METO50TA16 GT (11:31)
[2023-07-09] MEDS ORDERED: LORA-259 GT (11:31)
[2023-07-09] MEDS ORDERED: MERO1VIA23 IV (11:31)
[2023-07-09] MEDS ORDERED: LACT-209 GT (11:31)
[2023-07-09] MEDS: VANCOMYCIN IV 1,250 MG in IV DEXTROSE 5% 250 ML IV SCH (12:07)
[2023-07-09 13:31] LABS: ABG BASE EXCESS 4.4 mmol/L (-2.0-2.0); ABG HCO3 27.5 mmol/L (22.0-26.0); ABG PCO2 35.3 mmHg (35.0-48.0); ABG PO2 119.6 mmHg (75.0-100.0); ABG TOTAL HEMOGLOBIN 9.3 G/dL (14.0-18.0); AaDO2 98.7 mmHg; COHb 0.9 % (0.0-3.9); MetHb 0.3 % (0.0-1.5); O2Hb 97.3 % (94.0-97.0)
[2023-07-09] MEDS: LEVOTHYROXINE SODIUM 175 MCG TABLET GT SCH (19:46)
[2023-07-09] MEDS: ATORVASTATIN 40 MG TABLET GT SCH (20:06)
== END 2023-07-09 20:40 | DRG 870 ==
LOC: ER 00:19 → CCU 09:23 → TELE-TD3 07-01 12:49
PROVIDERS: ADMIT Nurse Practitioner Acute Care; ATTEND Internal Medicine
PROC: 5A1955Z Respiratory Ventilation, Greater than 96 Consecutive Hours (ICD-10-PCS; principal; 2023-06-26)
DX: A41.9 Sepsis, unspecified organism (principal); I50.33 Acute on chronic diastolic (congestive) heart failure; J96.21 Acute and chronic respiratory failure with hypoxia; N17.0 Acute kidney failure with tubular necrosis; I71.02 Dissection of abdominal aorta; J69.0 Pneumonitis due to inhalation of food and vomit; E43 Unspecified severe protein-calorie malnutrition; I71.012 Dissection of descending thoracic aorta; J44.0 Chronic obstructive pulmonary disease with (acute) lower respiratory infection; J44.1 Chronic obstructive pulmonary disease with (acute) exacerbation; D68.59 Other primary thrombophilia; E87.3 Alkalosis; G93.40 Encephalopathy, unspecified; I48.20 Chronic atrial fibrillation, unspecified; I16.1 Hypertensive emergency; I48.92 Unspecified atrial flutter; J98.11 Atelectasis; Z16.24 Resistance to multiple antibiotics; Z99.11 Dependence on respirator [ventilator] status; I71.21 Aneurysm of the ascending aorta, without rupture; I11.0 Hypertensive heart disease with heart failure; D18.03 Hemangioma of intra-abdominal structures; D50.9 Iron deficiency anemia, unspecified; E78.5 Hyperlipidemia, unspecified; E86.0 Dehydration; E89.0 Postprocedural hypothyroidism; J38.02 Paralysis of vocal cords and larynx, bilateral; K80.20 Calculus of gallbladder without cholecystitis without obstruction; N28.1 Cyst of kidney, acquired; N40.0 Benign prostatic hyperplasia without lower urinary tract symptoms; R13.10 Dysphagia, unspecified; R65.20 Severe sepsis without septic shock; Z79.01 Long term (current) use of anticoagulants; Z79.899 Other long term (current) drug therapy; Z85.850 Personal history of malignant neoplasm of thyroid; Z86.79 Personal history of other diseases of the circulatory system; Z93.0 Tracheostomy status; Z93.1 Gastrostomy status; Z95.2 Presence of prosthetic heart valve; R19.5 Other fecal abnormalities; R97.20 Elevated prostate specific antigen [PSA]
CPT/HCPCS: 36415; 36600; 71045; 71275; 82378; 82803; 83550; 83605; 83735; 84100; 84153; 84300; 84443; 84484; 85018; 85025; 86140; 87040; 93005; 93307; 94002; 94003; 94760; A4606; A4663; C9113; G0378; J0282; J0692; J1940; J2185; J2270; J3370; J3475; J3490; J7040; J7050; J7120; Q9967